=== PATIENT | female | born 1985 | race Caucasian/White ===

== ENCOUNTER → 2018-03-15 | Outpatient (CLI) | payer MEDICAID ==
[2015-03-08 10:29] VITALS: BMI 45.0
[~2018-03-15] MED LIST: CLOT15CR64 TP; ESCI10TA8 PO; IBUP800T37 PO; LABE100T2 PO; LABE200T35 PO; LEVO-3 PO; PER PO; PNV11TAB; TOLN15CR TP; [UNRECOGNIZED DRUG - REMARK]
== END ==
LOC: LAB 13:17
PROVIDERS: ATTEND Otolaryngology
DX: E03.9 Hypothyroidism, unspecified (principal); E04.9 Nontoxic goiter, unspecified
CPT/HCPCS: 36415; 84439; 84443; 86376; 86800

== ENCOUNTER → 2018-03-17 | Outpatient (CLI) | payer MEDICAID ==
[2015-03-08 10:29] VITALS: BMI 45.0
--- NOTE | 2018-03-18 04:47 | RADIOLOGY IMAGING REPORT ---
[place] [facility] [place] Libby Mars : 1985 MR: [id number] V: [id number] EXAM DATE: ORDERING PHYSICIAN: JUANA CANO TECHNOLOGIST: Location: [facility] Patient: Libby Mars : 1985 Visit/Account:[id number] Date of Sevice: 03/17/2018 Ultrasound of the thyroid: Indication: Hypothyroidism. Technique: Routine imaging, with limited Doppler. Comparison: None. Right lobe: Normal in size, measuring 8.5 x 1.1 x 1.1 cm. There is uniform parenchymal echogenicity. There are no signs of nodule, cyst, or calcification. Isthmus: Measures 3 mm and appears unremarkable. Left lobe: Normal in size, measuring 3.7 x 1.4 x 0.9 cm. In the midportion, there is a tiny well-circ umscribed, partially cystic nodule, measuring 0.5 x 0.5 x 0.4 cm. No calcification or hypervascularit y is observed. There is a very low suspicion for malignancy. IMPRESSION: The thyroid is normal in overall size. There is a tiny partially cystic nodule in the lef t lobe. No other focal thyroid lesions are identified. REFERENCE: 2015 [place] [employer] Management Guidelines for Adult Patients with Thyroid Nodules and D ifferentiated Thyroid Cancer: The [place] [employer] Guidelines Task Force on Thyroid Nodul es and Differentiated Thyroid Cancer. SONOGRAPHIC PATTERNS: * Benign: Purely cystic nodules (no solid component); estimated risk of malignancy <1 percent; no bi opsy recommended. * Very Low Suspicion: Spongiform or partially cystic nodules without any of the sonographic features described in low, intermediate, or high suspicion patterns; estimated risk of malignancy <3 percent; consider FNA at > 2 cm (Observation without FNA is also a reasonable option). * Low Suspicion: Isoechoic or hyperechoic solid nodule, or partially cystic nodule with eccentric so lid areas, without microcalcification, irregular margin or ETE (extra-thyroidal extension), or taller than wide shape; estimated risk of malignancy 5-10 percent; recommend FNA at >1.5 cm. * Intermediate Suspicion: Hypoechoic solid nodule with smooth margins without microcalcifications, E TE (extra-thyroidal extension), or taller than wide shape; estimated risk of malignancy 10-20 percent ; recommend FNA at > 1 cm. * High Suspicion: Solid hypoechoic nodule or solid hypoechoic component of a partially cystic nodule with one or more of the following features: irregular margins (infiltrative, microlobulated), microc alcifications, taller than wide shape, rim calcifications with small extrusive soft tissue component, evidence of ETE (extra-thyroidal extension); estimated risk of malignancy >70-90 percent; recommend FNA at > 1 cm. NOTES: * Although a sonographically suspicious subcentimeter thyroid nodule without evidence of extrathyroi laura extension or sonographically suspicious lymph nodes may be observed with close sonographic follow -up rather than pursuing immediate FNA, patient age and preference may modify decision-making. * A > 50% interval increase in nodule volume and/or development of new suspicious sonographic featur es are felt to be a valid reasons for potential re-aspiration of a nodule previously shown to have be nign FNA cytology. Report Dictated By: Ulysses Tristan MD at 03/18/2018 4:11 AM Report E-Signed By: Ulysses Tristan MD at 03/18/2018 4:43 AM WSN:[id number]
== END ==
LOC: US 02:28
PROVIDERS: ATTEND Otolaryngology
DX: E04.9 Nontoxic goiter, unspecified (principal); E03.9 Hypothyroidism, unspecified
CPT/HCPCS: 76536